=== PATIENT | female | born 1945 | race Caucasian/White ===

== ENCOUNTER → 2016-09-21 | Day surgery (SDC) | payer OTHER ==
[~2016-09-21] MED LIST: APIX2.5T PO; ATOR20TA PO; AUGM875T PO; BUPIVACAINE HCL PF 0.5% 30 ML VIAL ONE; BUPIVACAINE/EPINEPHRINE 0.5% PF 30 ML VIAL ONE; COZA50TA PO; CRAN500C2 PO; GABA100C4 PO; GLUCTAB4 PO; LACTATED RINGER'S 1000 ML INJ 1,000 ML ONE; MAGN30TA PO; MIDAZOLAM HCL 2 MG/2 ML VIAL ONE; NIAC500T18 PO; NORC7.5T PO; ONDANSETRON HCL 4 MG/2 ML VIAL IV PUSH ONE; OXYB5TAB PO; PROPOFOL 200 MG/20 ML AMP IV ONE; TAB-TAB PO; TRIA37.512 PO; VITA500015 PO; Z.0.COMMODE-3:1; Z.0.CPM; Z.0.WALKERFRONT; ceFAZolin INJ 1,000 MG VIAL ONE
--- NOTE | 2016-09-22 19:29 | MP ---
cc: VISHAL AMATO M.D. DATE OF SURGERY 09/21/16 PREOPERATIVE DIAGNOSIS Right knee deep cystic mass. POSTOPERATIVE DIAGNOSES Right knee deep cystic mass. PROCEDURE Surgical excision of right knee deep cystic mass. SURGEON Dr. Annia Amato FOREIGN CORRESPONDENT [facility] ANESTHESIA General. REVIEW OF SYSTEMS Less than 50 mL. TOURNIQUET TIME Zero minutes. JUSTIFICATION FOR PROCEDURE Patient is a 70-year-old female who has undergone previous right total knee arthroplasty. She has developed a symptomatic cystic mass and swelling along the anterolateral aspect of the right knee. The patient was counseled as to risks, benefits and alternatives to the above named proposed surgical procedure. She did wish to proceed with surgery. A written consent was obtained. The patient identified, taken to the operating room, placed supine on the operating table. General anesthesia was administered as well as 1 gram of IV Ancef. Right lower extremity prepped and draped using isopropyl alcohol, Hibiclens solution and DuraPrep solution. After a time-out was performed, a longitudinal incision made over the anterolateral aspect of the right knee. The fascial layer was incised and dissection was carried down to the level of the mass. It appeared to be a combination of both cystic components and also adipose tissue and fatty components involving the mass. Circumferential dissection was carried around the mass and the mass did dissect deep into the knee joint capsule. A complete excision was performed. The knee was thoroughly irrigated with sterile saline solution. Bovie cautery was used for hemostasis. The deep capsule layer was closed with #1 Vicryl suture. Subcutaneous layer with 3-0 Vicryl suture. Skin was closed with Dermabond. Sterile dressing was applied. The patient tolerated the procedure well with no intraoperative complications noted. Richar Sampson, physician store administrative assistant, was present during entire procedure to include patient positioning and procedure itself. The medical necessity of physician store administrative assistant was indicated due to the complexity of the procedure. He assisted with appropriate manipulation and exposure to allow for complete circumflex dissection. MD YANIV Tovar/ /10:49 AM /7:16 PM
== END | disposition home or self-care (01) ==
LOC: ESDC 09:07
PROVIDERS: ATTEND Orthopaedic Surgery Sports Medicine
DX: M25.861 Other specified joint disorders, right knee (principal)
CPT/HCPCS: 01400; 27347; 88305; J0690; J2250; J2405; J3010; J7120; 88304